=== PATIENT | male | born 1940 | race Caucasian/White ===

== ENCOUNTER 2022-08-21 19:54 | Emergency (ER) | payer MEDICARE ==
[2022-08-21] MEDS ORDERED: HYDROmorphone 0.5 MG/0.5 ML Syringe IVPUSH ONE (20:05)
[2022-08-21 20:21] LABS: BASOPHILS ABSOLUTE AUTO 0.05 K/uL (0.00-0.10); BASOPHILS PERCENT AUTO 0.3 % (0.1-1.3); EOSINOPHILS ABSOLUTE AUTO 0.05 K/uL (0.00-0.40); EOSINOPHILS PERCENT AUTO 0.3 % (0.0-5.4); HEMATOCRIT 46.7 % (38.4-49.7); HEMOGLOBIN 15.3 g/dL (12.9-16.9); IMMATURE GRAN ABSOLUTE AUTO 0.11 K/uL (0.00-0.23); IMMATURE GRAN PERCENT AUTO 0.7 % (0.0-0.7); LYMPHOCYTES ABSOLUTE AUTO 1.24 K/uL (0.8-3.3); LYMPHOCYTES PERCENT AUTO 8.3 % (11.4-47.7); MEAN CORPUSCULAR HEMOGLOBIN 30.9 pg (31.6-35.5); MEAN CORPUSCULAR HGB CONC 32.8 g/dL (31.6-35.5); MEAN CORPUSCULAR VOLUME 94.3 fL (81.4-99.0); MONOCYTES ABSOLUTE AUTO 0.62 K/uL (0.20-0.90); MONOCYTES PERCENT AUTO 4.2 % (3.3-12.6); NEUTROPHILS ABSOLUTE AUTO 12.84 K/uL (1.0-7.6); NEUTROPHILS PERCENT AUTO 86.2 % (40.0-78.1); PLATELET COUNT,PLT 120 K/uL (130-375); RED BLOOD CELL COUNT 4.95 M/uL (4.14-5.76); WHITE BLOOD CELL COUNT,WBC 14.9 K/uL (3.2-11.0)
[2022-08-21 20:22] LABS: EST CRCL DRUG DOSING (CG) 54.81 mL/min; ESTIMATED GFR 76 mL/min (>60)
[2022-08-21] MEDS ORDERED: Sodium Chloride 0.9% 100 ML IV SCH (20:30)
[2022-08-21] MEDS ORDERED: Iopamidol 755 Mg/ML 100 ML Bottle IV SCH (20:30)
[2022-08-21] MEDS ORDERED: Ondansetron 4 MG/2 ML SDV IVPUSH ONE (20:37)
[2022-08-21 20:44] LABS: A/G RATIO 1.1 (1.2-2.2); ALANINE AMINOTRANSFERASE,ALT 20 U/L (12-78); ALBUMIN 3.6 g/dL (3.4-5.0); ALKALINE PHOSPHATASE 167 U/L (46-116); ANION GAP 12.3 mmol/L (5.0-14.0); ASPARTATE AMNIOTRANSFERASE,AST 23 U/L (15-37); BILIRUBIN TOTAL 0.7 mg/dL (0.2-1.0); BLOOD UREA NITROGEN,BUN 14 mg/dL (7-18); CARBON DIOXIDE,CO2 25 mmol/L (21-32); CHLORIDE,CL 104 mmol/L (100-108); GLUCOSE RANDOM 155 mg/dL (74-106); POTASSIUM,K 4.3 mmol/L (3.6-5.2); SODIUM,NA 137 mmol/L (140-148)
[2022-08-21] MEDS ORDERED: HYDROmorphone 1 MG/ML Syringe IVPUSH ONE (20:49)
[2022-08-21] MEDS ORDERED: Sodium Chloride 0.9% 1,000 ML IV SCH (21:00)
[2022-08-21] MEDS ORDERED: cefTRIAXone 2 GM in Sodium Chloride 0.9% 50 ML IV ONE (22:06)
[2022-08-21] MEDS ORDERED: Ketorolac 30 MG/ML SDV IVPUSH ONE (22:22)
[2022-08-21 23:31] LABS: APPEARANCE,URINE SLIGHTLY CLOUDY (CLEAR); BILIRUBIN,URINE NEGATIVE (NEGATIVE); COLOR,URINE YELLOW (YELLOW); GLUCOSE,URINE NEGATIVE (NEGATIVE); KETONES,URINE NEGATIVE (NEGATIVE); LEUKOCYTE ESTERASE,URINE NEGATIVE (NEGATIVE); NITRITE,URINE NEGATIVE (NEGATIVE); OCCULT BLOOD,URINE LARGE (NEGATIVE); PH,URINE 5.5 (5.0-8.0); PROTEIN,URINE 30 mg/dL (NEGATIVE); UROBILINOGEN,URINE 0.2 EU/dL (0.2-1.0)
[2022-08-21 23:40] LABS: AMORPHOUS SEDIMENT,URINE NOT SEEN; BACTERIA,URINE FEW; EPITHELIAL CELLS,URINE RARE; MUCUS,URINE RARE; RBC,URINE 30-40 (0-5); WBC,URINE 0-5 (0-5)
[2022-08-22] MEDS ORDERED: Metoprolol Succinate 25 MG Tab.ER PO STA (05:14)
[2022-08-22 06:34] VITALS: BP 179/80; PULSE 62
== END 2022-08-22 09:47 | disposition home or self-care (01) ==
LOC: JP.ED 19:54
DX: N13.2 Hydronephrosis with renal and ureteral calculous obstruction (principal); Z79.82 Long term (current) use of aspirin
CPT/HCPCS: 36415; 74176; 80053; 81001; 83605; 85025; 86140; 96361; 96365; 96375; 96376; 99285; A9270; J0696; J1170; J1885; J2405; J3490; J7030; 99284

== ENCOUNTER 2023-08-11 06:32 | Day surgery (SDC) | payer MEDICARE ==
[2023-08-11] MEDS ORDERED: Propofol 200 MG/20 ML SDV ONE ×2 (07:06→07:49)
[2023-08-11] MEDS ORDERED: fentaNYL 50 MCG/ML SDV ONE (07:06)
[2023-08-11] MEDS: Lactated Ringers 1,000 ML IV SCH (07:24)
[2023-08-11 08:52] VITALS: BP 160/77; PULSE 56
== END 2023-08-11 09:13 | disposition home or self-care (01) ==
LOC: JP.SDS 06:32
PROVIDERS: ATTEND Family Medicine
DX: D12.0 Benign neoplasm of cecum (principal); D12.5 Benign neoplasm of sigmoid colon; K57.30 Diverticulosis of large intestine without perforation or abscess without bleeding; D69.6 Thrombocytopenia, unspecified; I10 Essential (primary) hypertension; J44.9 Chronic obstructive pulmonary disease, unspecified; I25.10 Atherosclerotic heart disease of native coronary artery without angina pectoris; E78.5 Hyperlipidemia, unspecified; Z79.82 Long term (current) use of aspirin; Z79.899 Other long term (current) drug therapy
CPT/HCPCS: 00813; 43235; 45380; 88305; J2704; J3010; J7120